=== PATIENT | female | born 1935 | race Caucasian/White ===

== ENCOUNTER 2017-03-16 11:42 | Emergency (ER) | payer MEDICARE ==
[~2017-03-16 11:42] MED LIST: ADVAIR 2501 DISK W/D IH; ADVAIR HFA 115/12 GM IH; ALOE VESTA56 GM TP; AMARYL4 M1 PO; AMARYL4 MG PO; AMBIEN PAK5 MG PO; BENZONATATE200 MG PO; COMBIVENT INH14.7 G1 IH; GLUCAGON EME1 MG/KIT IJ; INSULIN SQ; LEVAQUIN750 MG PO; LEVEMIR100 UNITS/ SC; LEVOTHYROXINE25 MC3 PO; PREDNISONE10 MG PO; PROMETHAZINE; TYLENOL325 M1 PO
[2017-03-16] MEDS ORDERED: NOVOLOG FL100 UNIT/2 SC (11:49)
[2017-03-16] MEDS ORDERED: PERIOGARD473 ML MM (11:49)
[2017-03-16] MEDS ORDERED: TRESIBA FL200 UNIT/1 SC (11:49)
[2017-03-16] MEDS ORDERED: SYNTHROID25 MC1 PO (11:49)
[2017-03-16] MEDS ORDERED: AMBIEN5 M1 PO (11:50)
[2017-03-16] MEDS ORDERED: HYDROCODON-ACE1 EA16 PO (11:50)
[2017-04-30] MEDS ORDERED: TOUJEO SOL300 UNIT/1 SC (10:11)
[2017-04-30] MEDS ORDERED: PERIDEX118 ML SSP (10:11)
[2017-04-30] MEDS ORDERED: SYNTHROID25 MC1 PO (10:11)
[2017-04-30] MEDS ORDERED: NORCO 5-325 TA1 EACH PO (10:12)
[2017-04-30] MEDS ORDERED: AMBIEN5 M1 PO (10:12)
[2017-04-30] MEDS ORDERED: KEFLEX500 M4 PO (12:48)
== END 2017-03-16 15:01 ==
LOC: EDMED 11:42
DX: S30.0XXA Contusion of lower back and pelvis, initial encounter (principal); S70.01XA Contusion of right hip, initial encounter; S80.01XA Contusion of right knee, initial encounter; E11.9 Type 2 diabetes mellitus without complications; J44.9 Chronic obstructive pulmonary disease, unspecified; Z79.4 Long term (current) use of insulin; Z79.899 Other long term (current) drug therapy; W19.XXXA Unspecified fall, initial encounter